=== PATIENT | male | born 1950 | race Caucasian/White ===

== ENCOUNTER 2016-08-02 12:01 | Inpatient (IN) | payer OTHER ==
[~2016-08-02] VITALS: Ht 177.8 cm; Wt 68.5 kg
[~2016-08-02 12:01] MED LIST: ABAC1TAB7 PO; ACET-1600 PO; AMLO5TAB2 PO; ASPI325T80 PO; CELE200C PO; CHOL500050 PO; CLON0.2T PO; FAMO20TA7 PO; FERR140T2 PO; FURO40TA6 PO; GABA600T2 PO; HYDR-3144 PO; LISI40TA PO; METO50TA82 PO; MULT-6 PO; PREZISTA PO; RITO100C PO; SIMV20TA3 PO
[2016-08-02] MEDS ORDERED: TRAM50TA2 PO (12:12)
[2016-08-02] MEDS ORDERED: DIPH25CA61 PO (12:23)
[2016-08-02] MEDS ORDERED: SODIUM CHLORIDE FLUSH 10ML SYR IVF ONE (12:30)
[2016-08-02 13:17] LABS: ASPARTATE AMINO TRANSFERASE 21 U/L (15-37); BLOOD UREA NITROGEN 78 mg/dL (7-18)
[2016-08-02 13:23] LABS: IS PT STATUS REG ER OR PRE ER? YES
[2016-08-02 13:39] LABS: DIFF TOTAL CELLS COUNTED 100 CELL DIFF
[2016-08-02 14:09] LABS: VERIFY COUNTS? YES
[2016-08-02] MEDS ORDERED: SODIUM CHLORIDE 0.9% 1,000 ML IV ONE ×2 (14:21→14:27)
[2016-08-02] MEDS ORDERED: SODIUM CHLORIDE FLUSH 10ML SYR IVF PRN (14:30)
[2016-08-02] MEDS ORDERED: SODIUM CHLORIDE 0.9% 1,000ML IVBOLUS ONE (14:30)
[2016-08-02] MEDS: SODIUM CHLORIDE 0.9% 1,000 ML IV SCH (15:47)
[2016-08-02] MEDS ORDERED: ACETAMINOPHEN 325 MG TABLET PO PRN (16:00)
[2016-08-02] MEDS ORDERED: ONDANSETRON 2MG/ML, 2ML IVP PRN (16:00)
[2016-08-02] MEDS ORDERED: ONDANSETRON ODT 4 MG PO PRN (16:00)
[2016-08-02 16:53] VITALS: BP 116/76
[2016-08-02] MEDS ORDERED: ENOXAPARIN 40 MG/0.4 ML SQ SCH (17:00)
[2016-08-02 17:11] VITALS: BP 136/82
[2016-08-02] MEDS: NICOTINE 7 MG/24 HR PATCH.TD24 TD SCH (18:07)
[2016-08-02 19:09] LABS: IS PT STATUS REG ER OR PRE ER? NO
[2016-08-02 19:23] VITALS: BP 107/58
[2016-08-02 22:28] VITALS: BP_SYST 103; BP_SYST 120; BP_SYST 84; BP_DIAS 57; BP_DIAS 64
[2016-08-03] VITALS (8 sets, daily range): BP systolic 106–137; BP diastolic 63–81
[2016-08-03 02:08] LABS: IS PT STATUS REG ER OR PRE ER? NO
[2016-08-03] MEDS: SODIUM CHLORIDE 0.9% 1,000 ML IV SCH (03:26)
[2016-08-03 06:10] LABS: BLOOD UREA NITROGEN 61 mg/dL (7-18)
[2016-08-03 06:13] LABS: ASPARTATE AMINO TRANSFERASE 21 U/L (15-37)
[2016-08-03 06:28] LABS: DIFF TOTAL CELLS COUNTED 100 CELL DIFF
[2016-08-03 06:30] LABS: VERIFY COUNTS? YES
[2016-08-03] MEDS ORDERED: METOPROLOL TARTRATE 100 MG TABLET PO SCH (09:00)
[2016-08-03] MEDS: MULTIVITAMIN 1 TABLET PO SCH (09:17)
[2016-08-03] MEDS: AMLODIPINE 5 MG TABLET PO SCH (09:17)
[2016-08-03] MEDS: DARUNAVIR 800 MG TABLET PO SCH (09:17)
[2016-08-03] MEDS: RITONAVIR 100 MG TABLET PO SCH (09:18)
[2016-08-03] MEDS ORDERED: LORazepam 2 MG/ML, 1ML ONE (13:35)
[2016-08-03] MEDS ORDERED: LORazepam 2 MG/ML, 1ML IVPush ONE (14:00)
[2016-08-03] MEDS ORDERED: NITROGLYCERIN 0.4 MG/SPRAY SL PRN (14:30)
[2016-08-03] MEDS ORDERED: NITROGLYCERIN 0.4 MG BOTTLE (25 TABS) SL PRN (14:30)
[2016-08-03 15:14] LABS: IS PT STATUS REG ER OR PRE ER? NO
[2016-08-03] MEDS: ASPIRIN 325 MG TABLET PO SCH (15:30)
[2016-08-03] MEDS: HEPARIN 5,000 UNITS/ML, 1ML SQ SCH (15:30)
[2016-08-03] MEDS: NICOTINE 7 MG/24 HR PATCH.TD24 TD SCH (17:41)
[2016-08-04 02:00] VITALS: BP 107/64
[2016-08-04] MEDS: ASPIRIN 325 MG TABLET PO SCH (05:11)
[2016-08-04 05:59] LABS: BLOOD UREA NITROGEN 51 mg/dL (7-18)
[2016-08-04 07:51] VITALS: BP 125/80
[2016-08-04] MEDS: RITONAVIR 100 MG TABLET PO SCH (09:00)
[2016-08-04] MEDS: MULTIVITAMIN 1 TABLET PO SCH (09:45)
[2016-08-04] MEDS: AMLODIPINE 5 MG TABLET PO SCH (09:45)
[2016-08-04] MEDS: DARUNAVIR 800 MG TABLET PO SCH (09:46)
[2016-08-04] MEDS: HEPARIN 5,000 UNITS/ML, 1ML SQ SCH ×3 (09:47→16:00)
[2016-08-04] MEDS ORDERED: ISOSORBIDE MONONITRATE ER 30 MG TABLET PO SCH (10:00)
[2016-08-04] MEDS ORDERED: METOPROLOL SUCCINATE 50 MG TAB.ER.24H PO SCH (10:00)
[2016-08-04] MEDS ORDERED: CALCIUM CARBONATE 500 MG TAB.CHEW PO PRN (11:30)
[2016-08-04 13:41] VITALS: BP 101/63
[2016-08-04] MEDS ORDERED: ISOS30TA8 PO (16:02)
[2016-08-04] MEDS ORDERED: METO-93 PO (16:02)
[2016-08-04] MEDS: NICOTINE 7 MG/24 HR PATCH.TD24 TD SCH (17:00)
== END 2016-08-04 18:28 | disposition home health service (06) | DRG 73 ==
LOC: ED 12:20 → EDIP 14:27 → 4WST 16:28
PROVIDERS: ADMIT Internal Medicine; ATTEND Internal Medicine
PROC: 0T9B70Z Drainage of Bladder with Drainage Device, Via Natural or Artificial Opening (ICD-10-PCS; principal; 2016-08-02)
DX: G90.8 Other disorders of autonomic nervous system (principal); N17.0 Acute kidney failure with tubular necrosis; E44.0 Moderate protein-calorie malnutrition; J96.10 Chronic respiratory failure, unspecified whether with hypoxia or hypercapnia; I50.22 Chronic systolic (congestive) heart failure; N18.4 Chronic kidney disease, stage 4 (severe); I13.0 Hypertensive heart and chronic kidney disease with heart failure and stage 1 through stage 4 chronic kidney disease, or unspecified chronic kidney disease; D72.829 Elevated white blood cell count, unspecified; D50.9 Iron deficiency anemia, unspecified; B19.20 Unspecified viral hepatitis C without hepatic coma; D53.9 Nutritional anemia, unspecified; E55.9 Vitamin D deficiency, unspecified; W19.XXXA Unspecified fall, initial encounter; E78.5 Hyperlipidemia, unspecified; F11.90 Opioid use, unspecified, uncomplicated; F17.210 Nicotine dependence, cigarettes, uncomplicated; F41.9 Anxiety disorder, unspecified; G47.33 Obstructive sleep apnea (adult) (pediatric); I25.10 Atherosclerotic heart disease of native coronary artery without angina pectoris; I48.91 Unspecified atrial fibrillation; J44.9 Chronic obstructive pulmonary disease, unspecified; G89.29 Other chronic pain; K21.9 Gastro-esophageal reflux disease without esophagitis; R94.31 Abnormal electrocardiogram [ECG] [EKG]; G43.909 Migraine, unspecified, not intractable, without status migrainosus; M19.90 Unspecified osteoarthritis, unspecified site; Z53.29 Procedure and treatment not carried out because of patient's decision for other reasons; I95.1 Orthostatic hypotension; Z96.642 Presence of left artificial hip joint; F32.9 Major depressive disorder, single episode, unspecified; R07.9 Chest pain, unspecified; Z95.5 Presence of coronary angioplasty implant and graft; Z86.14 Personal history of Methicillin resistant Staphylococcus aureus infection; Z86.73 Personal history of transient ischemic attack (TIA), and cerebral infarction without residual deficits; Z82.3 Family history of stroke; Z82.49 Family history of ischemic heart disease and other diseases of the circulatory system; Z84.89 Family history of other specified conditions; Z99.81 Dependence on supplemental oxygen; Z68.21 Body mass index [BMI] 21.0-21.9, adult; Z88.8 Allergy status to other drugs, medicaments and biological substances; Y93.89 Activity, other specified; Y92.89 Other specified places as the place of occurrence of the external cause; Y99.8 Other external cause status; Z21 Asymptomatic human immunodeficiency virus [HIV] infection status
CPT/HCPCS: 36415; 70450; 71010; 80048; 80053; 80061; 81003; 82306; 83735; 83880; 83970; 84100; 84436; 84443; 84484; 85025; 85610; 85730; 93005; 93306; 93880; J1644; J1650; J2060; J7030

== ENCOUNTER → 2016-08-10 | Outpatient (CLI) | payer OTHER ==
[~2016-08-10] MED LIST changes: +DIPH25CA61 PO; +ISOS30TA8 PO; +METO-93 PO; +TRAM50TA2 PO
== END | disposition home or self-care (01) ==
LOC: CFH 07:14
PROVIDERS: ATTEND Nurse Practitioner Primary Care
DX: N28.1 Cyst of kidney, acquired (principal); I10 Essential (primary) hypertension; D64.9 Anemia, unspecified; I63.9 Cerebral infarction, unspecified; N18.9 Chronic kidney disease, unspecified
CPT/HCPCS: 76700

== ENCOUNTER → 2016-12-28 | Outpatient (CLI) | payer OTHER ==
[~2016-12-28] MED LIST changes: -HYDR-3144 PO; +HYDR-3245 PO
== END | disposition home or self-care (01) ==
LOC: CFH 11:05
PROVIDERS: ATTEND Nurse Practitioner Primary Care
DX: Z13.820 Encounter for screening for osteoporosis (principal); M81.0 Age-related osteoporosis without current pathological fracture; M48.54XA Collapsed vertebra, not elsewhere classified, thoracic region, initial encounter for fracture
CPT/HCPCS: 77080

== ENCOUNTER 2018-02-10 11:20 | Emergency (ER) | payer OTHER ==
[~2018-02-10] VITALS: Ht 177.8 cm; Wt 87.0 kg
[~2018-02-10 11:20] MED LIST changes: -AMLO5TAB2 PO; +AMLO5TAB7 PO; +DOLU50TA PO; -FERR140T2 PO; +FERR140T3 PO; +Maalox/Hyoscyamine/Lidocaine PO; +PANT40TA3 PO; +PANT40TA5 PO; +SUCR1ORA11 PO; +SUCR1ORA5 PO; +TRAM100T33 PO
[2018-02-10] MEDS ORDERED: ONDANSETRON ODT 4 MG PO ONE (12:30)
[2018-02-10] MEDS ORDERED: MORPHINE SULFATE 4 MG/ML, 1ML IVPush PRN (12:30)
[2018-02-10] MEDS ORDERED: SODIUM CHLORIDE FLUSH 10ML SYR IVF ONE (12:30)
[2018-02-10] MEDS ORDERED: MORPHINE SULFATE 4 MG/ML, 1ML ONE (12:41)
[2018-02-10] MEDS ORDERED: ONDANSETRON ODT 4 MG ONE (12:41)
[2018-02-10 12:51] LABS: BASOPHILS # (AUTO) 0.03 x10^3/uL (0-0.1); BASOPHILS % (AUTO) 0 % (0-1); EOSINOPHILS # (AUTO) 0.13 x10^3/uL (0-0.4); EOSINOPHILS % (AUTO) 2 % (1-7); LYMPHOCYTES # (AUTO) 1.39 x10^3/uL (1-3.4); LYMPHOCYTES % (AUTO) 16 % (22-44); MD NO; MEAN CORPUSCULAR HEMOGLOBIN 32.7 pg (27.5-34.5); MEAN CORPUSCULAR HGB CONC 33.2 g/dL (33.2-36.2); MEAN CORPUSCULAR VOLUME 98.7 fL (81-97); MEAN PLATELET VOLUME 7.4 fL (7.4-10.4); MONOCYTES # (AUTO) 1.15 x10^3/uL (0.2-0.8); MONOCYTES % (AUTO) 13 % (2-9); NEUTROPHILS # (AUTO) 6.07 x10^3/uL (1.8-6.8); NEUTROPHILS % (AUTO) 69 % (42-75); PLATELET COUNT 268 x10^3/uL (130-400); RED BLOOD COUNT 4.42 x10^6/uL (4.38-5.82); RED CELL DISTRIBUTION WIDTH 19.3 % (9.4-14.8)
[2018-02-10 13:04] LABS: ALANINE AMINOTRANSFERASE 51 U/L (12-78); ALBUMIN 3.2 g/dL (3.4-5.0); ANION GAP 5 mmol/L (5-15); CALCIUM 9.8 mg/dL (8.5-10.1); CHLORIDE 104 mmol/L (98-107); CREATININE 1.88 mg/dL (0.7-1.3)
[2018-02-10 13:08] LABS: ALKALINE PHOSPHATASE 156 U/L (45-117); BILIRUBIN,TOTAL 0.7 mg/dL (0.2-1.0); TOTAL PROTEIN 8.7 g/dL (6.4-8.2); TROPONIN I < 0.015 ng/mL (0.000-0.045)
[2018-02-10 13:25] VITALS: BP 148/105
== END 2018-02-10 14:35 | disposition home or self-care (01) ==
LOC: ED 13:05
DX: N28.9 Disorder of kidney and ureter, unspecified (principal); J43.9 Emphysema, unspecified; G62.9 Polyneuropathy, unspecified; I10 Essential (primary) hypertension; G40.909 Epilepsy, unspecified, not intractable, without status epilepticus
CPT/HCPCS: 36415; 71045; 74176; 80053; 83605; 83690; 84484; 85025; 93005; 96374; 99285; Q0162

== ENCOUNTER 2018-02-14 21:02 | Emergency (ER) | payer OTHER ==
[~2018-02-14] VITALS: Ht 177.8 cm; Wt 90.0 kg
[2018-02-14] MEDS ORDERED: ONDANSETRON ODT 4 MG PO ONE (22:00)
[2018-02-14] MEDS ORDERED: HYDROmorphone 1 MG/ML, 1ML IM ONE (22:00)
[2018-02-14] MEDS ORDERED: ONDANSETRON ODT 4 MG ONE (22:02)
[2018-02-14 22:05] LABS: BASOPHILS # (AUTO) 0.03 x10^3/uL (0-0.1); BASOPHILS % (AUTO) 0 % (0-1); EOSINOPHILS # (AUTO) 0.27 x10^3/uL (0-0.4); EOSINOPHILS % (AUTO) 3 % (1-7); LYMPHOCYTES # (AUTO) 1.48 x10^3/uL (1-3.4); LYMPHOCYTES % (AUTO) 14 % (22-44); MD NO; MEAN CORPUSCULAR HEMOGLOBIN 32.6 pg (27.5-34.5); MEAN CORPUSCULAR HGB CONC 32.9 g/dL (33.2-36.2); MEAN PLATELET VOLUME 7.4 fL (7.4-10.4); MONOCYTES # (AUTO) 1.08 x10^3/uL (0.2-0.8); MONOCYTES % (AUTO) 10 % (2-9); NEUTROPHILS # (AUTO) 7.47 x10^3/uL (1.8-6.8); NEUTROPHILS % (AUTO) 72 % (42-75); PLATELET COUNT 244 x10^3/uL (130-400); RED BLOOD COUNT 4.24 x10^6/uL (4.38-5.82); RED CELL DISTRIBUTION WIDTH 18.8 % (9.4-14.8)
[2018-02-14 22:11] LABS: ALANINE AMINOTRANSFERASE 43 U/L (12-78); ALBUMIN 3.1 g/dL (3.4-5.0); ANION GAP 8 mmol/L (5-15); CALCIUM 8.3 mg/dL (8.5-10.1); CHLORIDE 105 mmol/L (98-107); CREATININE 2.25 mg/dL (0.7-1.3)
[2018-02-14 22:13] LABS: ALKALINE PHOSPHATASE 159 U/L (45-117); BILIRUBIN,TOTAL 0.5 mg/dL (0.2-1.0); TOTAL PROTEIN 8.2 g/dL (6.4-8.2)
[2018-02-14 23:00] VITALS: BP 145/82
== END 2018-02-14 23:29 | disposition home or self-care (01) ==
LOC: ED 21:30
DX: I12.9 Hypertensive chronic kidney disease with stage 1 through stage 4 chronic kidney disease, or unspecified chronic kidney disease (principal); N18.9 Chronic kidney disease, unspecified; M79.2 Neuralgia and neuritis, unspecified; G40.909 Epilepsy, unspecified, not intractable, without status epilepticus; J44.9 Chronic obstructive pulmonary disease, unspecified; Z98.61 Coronary angioplasty status; Z87.09 Personal history of other diseases of the respiratory system; Z87.19 Personal history of other diseases of the digestive system; Z86.19 Personal history of other infectious and parasitic diseases
CPT/HCPCS: 36415; 80053; 85025; 99284; Q0162

== ENCOUNTER → 2018-05-02 | Outpatient (CLI) | payer OTHER ==
[~2018-05-02] MED LIST changes: +AMLO-150 PO; -AMLO5TAB7 PO
== END | disposition home or self-care (01) ==
LOC: CFH 09:08
PROVIDERS: ATTEND Internal Medicine
DX: R10.9 Unspecified abdominal pain (principal)
CPT/HCPCS: 76705

== ENCOUNTER 2019-04-23 11:32 | Emergency (ER) | payer MEDICARE, OTHER ==
[~2019-04-23] VITALS: Ht 177.8 cm; Wt 107.0 kg
[~2019-04-23 11:32] MED LIST changes: +DOLU1TAB PO; +FURO20TA3 PO; -GABA600T2 PO; +GABA600T7 PO; +OXYC10TA6 PO
--- NOTE | 2019-04-23 12:05 | NUR ---
Pt reports increased WOB starting this morning. Pt reports taking breathing tx's last night. Pt is alert and oriented. Pt noted to be posturing with increased WOB. Diminished breath sounds throughout. Pt on 3.5L NC. Pt in gown and placed on monitors. Call light within reach.
[2019-04-23] MEDS ORDERED: ALBUTEROL/IPRATROPIUM 2.5MG/0.5MG, 3 ML ONE (12:23)
--- NOTE | 2019-04-23 12:29 | NUR ---
Pt given duoneb by this RN as RT unavaible currently in code. Pt having diminished lungf sounds with expiratory wheezing prior to treatment.
[2019-04-23] MEDS ORDERED: ALBUTEROL/IPRATROPIUM 2.5MG/0.5MG, 3 ML NPPB ONE (12:30)
[2019-04-23 12:44] LABS: BASOPHILS # (AUTO) 0.07 x10^3/uL (0-0.1); BASOPHILS % (AUTO) 1 % (0-1); EOSINOPHILS # (AUTO) 0.28 x10^3/uL (0-0.4); EOSINOPHILS % (AUTO) 3 % (1-7); LYMPHOCYTES # (AUTO) 1.72 x10^3/uL (1-3.4); LYMPHOCYTES % (AUTO) 17 % (22-44); MD NO; MEAN CORPUSCULAR HEMOGLOBIN 29.7 pg (27.5-34.5); MEAN CORPUSCULAR HGB CONC 32.2 g/dL (33.2-36.2); MEAN CORPUSCULAR VOLUME 92.4 fL (81-97); MEAN PLATELET VOLUME 7.4 fL (7.4-10.4); MONOCYTES # (AUTO) 0.97 x10^3/uL (0.2-0.8); MONOCYTES % (AUTO) 9 % (2-9); NEUTROPHILS # (AUTO) 7.31 x10^3/uL (1.8-6.8); NEUTROPHILS % (AUTO) 71 % (42-75); PLATELET COUNT 267 x10^3/uL (130-400); RED BLOOD COUNT 5.15 x10^6/uL (4.38-5.82); RED CELL DISTRIBUTION WIDTH 16.2 % (9.4-14.8)
[2019-04-23 12:50] LABS: ALANINE AMINOTRANSFERASE 78 U/L (12-78); ANION GAP 6 mmol/L (5-15); CHLORIDE 109 mmol/L (98-107); CREATININE 1.99 mg/dL (0.7-1.3)
[2019-04-23 12:55] LABS: ALKALINE PHOSPHATASE 158 U/L (45-117); BILIRUBIN,TOTAL 0.5 mg/dL (0.2-1.0); TROPONIN I < 0.015 ng/mL (0.000-0.045)
--- NOTE | 2019-04-23 14:04 | NUR ---
Pt dc'd to self care. WOB improved, pt speaking in full sentences. Pt educated on medications, follow-up and S/Sx to return. Pt VU. Prescriptions given at time of d/c.
[2019-04-23 14:05] VITALS: BP 143/102
--- NOTE | 2019-04-23 14:10 | NUR ---
PT ASSITED TO PARKING LOT WHERE HE IS WAITING FOR RIDE. PT WAS ALSO GIVEN SPACER BY RN PRIOR TO LEAVING.
== END 2019-04-23 14:12 | disposition home or self-care (01) ==
LOC: ED 12:58
DX: J43.9 Emphysema, unspecified (principal); I10 Essential (primary) hypertension; Z87.891 Personal history of nicotine dependence
CPT/HCPCS: 36415; 71045; 80053; 83880; 84443; 84484; 85025; 93005; 99284; J7620

== ENCOUNTER 2019-07-20 18:19 | Emergency (ER) | payer OTHER ==
[~2019-07-20] VITALS: Ht 177.8 cm; Wt 102.4 kg
[~2019-07-20 18:19] MED LIST changes: +ALBU90AE INH; +ATOR40TA78 PO; +EZET10TA70 PO; +FLUT16SP24 NAS; +HYDR-3342 PO; +METO25TA91 PO; +SIMV20TA19 PO; -SIMV20TA3 PO; -SUCR1ORA11 PO; +SUCR1ORA14 PO; +TIOT18CA INH
[2019-07-20 18:22] VITALS: BP 171/96
--- NOTE | 2019-07-20 18:31 | NUR ---
pt ambulated to the room using his FWW with a steady gait. Instructed pt to change into a hospital gown. pt in with C/O increased coughing and sneezing following outpatient care s/p 6 day hospital admission..
--- NOTE | 2019-07-20 19:12 | NUR ---
PT EXPRESSED TO PA THAT HE ONLY WANTS TO BE SEEN FOR BILAT EYE IRRITATION. CXR CANCELLED.
[2019-07-20] MEDS ORDERED: predniSOLONE OPHTH SUSP 1%, 5ML EACHEYE STA (19:54)
--- NOTE | 2019-07-20 20:01 | NUR ---
MED NAE FROM PHARMACY.
--- NOTE | 2019-07-20 20:16 | NUR ---
Patient given discharge instructions and they have confirmed that they understand the instructions. Patient ambulatory with steady gait. Patient given taxi voucher.
== END 2019-07-20 20:19 | disposition home or self-care (01) ==
LOC: ED 18:42
DX: H10.31 Unspecified acute conjunctivitis, right eye (principal); F17.210 Nicotine dependence, cigarettes, uncomplicated; J44.9 Chronic obstructive pulmonary disease, unspecified
CPT/HCPCS: 93005; 99283

== ENCOUNTER 2019-07-27 13:59 | Emergency (ER) | payer OTHER ==
[~2019-07-27] VITALS: Ht 177.8 cm; Wt 100.0 kg
[2019-07-27 14:05] VITALS: BP 145/90
== END 2019-07-27 15:25 | disposition home or self-care (01) ==
LOC: ED 14:26
DX: H10.33 Unspecified acute conjunctivitis, bilateral (principal); J44.9 Chronic obstructive pulmonary disease, unspecified; I25.2 Old myocardial infarction; I10 Essential (primary) hypertension; Z21 Asymptomatic human immunodeficiency virus [HIV] infection status
CPT/HCPCS: 99282